=== PATIENT | male | born 1955 | race Caucasian/White ===

== ENCOUNTER → 2020-06-22 | Outpatient (CLI) | payer OTHER, MEDICARE ==
[2020-06-22 18:17] LABS: HEMOGLOBIN 9.9 gm/dl (14.0-17.5); RED BLOOD COUNT 3.4 M/UL (4.20-5.50); WHITE BLOOD COUNT 5.2 K/UL (4.5-11.0)
[2020-06-22 18:32] LABS: BUN/CREATININE RATIO 21 (0-10)
== END ==
LOC: LBRF 18:00
PROVIDERS: Internal Medicine Infectious Disease
DX: I96 Gangrene, not elsewhere classified (principal); R79.89 Other specified abnormal findings of blood chemistry; R79.82 Elevated C-reactive protein (CRP); N18.1 Chronic kidney disease, stage 1; R68.89 Other general symptoms and signs
CPT/HCPCS: 80053; 82550; 85025; 86140